=== PATIENT | female | born 1990 ===

== ENCOUNTER 2018-09-13 08:30 | Emergency (ER) | payer OTHER ==
--- NOTE | 2018-09-13 08:53 | OBHP ---
Datetime: 09/13/2018 08:47 IP Adm Impression: , intrauterine IP Chief Complaint Other: back pain Admit Comment, IP Provider: at 36+weks came with c/o back pin started last nigh, 12/13,no vb , l of+fm,no dysuria.did not had sex obhx 1 x pmh de med pnv all nkda psh de soch de ve close a/p t 36week back pain cont tyler and efm ua cont rosario zeb Pelvic Type - PN: Adequate Extremities - PN: Normal Abdomen - PN: Normal Back - PN: Normal Breast - PN: Normal Lungs - PN: Normal Heart - PN: Normal Thyroid - PN: Normal Neurologic - PN: Normal HEENT - PN: Normal General - PN: Normal FHR - Baseline A Provider: 130 Contraction Comments Provider: none EGA AdmitDate IP: 36.0 Vital Signs Provider: Reviewed; Within Normal Limits IP Chief Complaint: Maternal discomfort NICHD Variability Prov Fetus A: Moderate 6-25bpm FHR Category Provider Fetus A: Category I Dilatation, Provider: 0 Effacement, Provider: 0 Station, Provider: -3 Genitourinary Exam: Normal DTRs - PN: Normal
[2018-09-13 09:57] LABS: SQUAMOUS EPITHIAL 27 /hpf (0-5); URINE BACTERIA MANY (<OCC); URINE BILIRUBIN NEGATIVE (NEGATIVE); URINE BLOOD NEGATIVE (NEGATIVE); URINE CLARITY Hazy (Clear); URINE COLOR Amber (YELLOW); URINE GLUCOSE (UA) NORMAL (Normal); URINE LEUKOCYTE ESTERASE 3+ Leu/uL (Negative); URINE PROTEIN 1+ mg/dL (NEGATIVE); URINE UROBILINOGEN NORMAL mg/dL (0.2-1.0)
== END 2018-09-13 10:15 | disposition home or self-care (01) ==
LOC: C.EROB 08:30
DX: O26.893 Other specified pregnancy related conditions, third trimester (principal); Z3A.36 36 weeks gestation of pregnancy; M54.9 Dorsalgia, unspecified

== ENCOUNTER 2018-10-18 18:45 | Inpatient (IN) | payer OTHER ==
--- NOTE | 2018-10-18 19:25 | OBHP ---
Datetime: 10/18/2018 19:19 IP Adm Impression: Term, intrauterine IP Admit Plan: Admit to unit; Initiate labor induction protocol Admit Comment, IP Provider: A/P: 28 yo at 41 wks r/o labor - multigravida - GBS negative - Early labor and post dates, will induce FHR - Baseline A Provider: 140 Membranes, Provider: Intact Contraction Comments Provider: q6 Gestation - Est Wks by US: 41.0 Pool Provider: Negative EGA AdmitDate IP: 41.0 Vital Signs Provider: Reviewed; Within Normal Limits IP Chief Complaint: Uterine contractions NICHD Variability Prov Fetus A: Moderate 6-25bpm NICHD Accel Fetus A IP Provider: 15X15 FHR Category Provider Fetus A: Category I NICHD Decel Fetus A IP Provider: None Dilatation, Provider: 3 Effacement, Provider: 60 Station, Provider: -3
[2018-10-18] MEDS ORDERED: Lactated Ringer's 1,000 ML IV SCH (19:30)
--- NOTE | 2018-10-18 19:35 | OBADHP ---
Datetime: 10/18/2018 19:19 Admit Comment, IP Provider: A/P: 28 yo at 41 wks r/o labor - multigravida - GBS negative - Early labor and post dates, will induce with cervidil FHR - Baseline A Provider: 140 Membranes, Provider: Intact Contraction Comments Provider: q6 Gestation - Est Wks by US: 41.0 Pool Provider: Negative Vital Signs Provider: Reviewed; Within Normal Limits IP Chief Complaint: Uterine contractions NICHD Variability Prov Fetus A: Moderate 6-25bpm NICHD Accel Fetus A IP Provider: 15X15 FHR Category Provider Fetus A: Category I NICHD Decel Fetus A IP Provider: None Dilatation, Provider: 3 Effacement, Provider: 60 Station, Provider: -3 EGA AdmitDate IP: 41.0 IP Adm Impression: Term, intrauterine IP Admit Plan: Admit to unit; Initiate labor induction protocol Datetime: 09/13/2018 08:47 IP Chief Complaint Other: back pain Pelvic Type - PN: Adequate Extremities - PN: Normal Abdomen - PN: Normal Back - PN: Normal Breast - PN: Normal Lungs - PN: Normal Heart - PN: Normal Thyroid - PN: Normal Neurologic - PN: Normal HEENT - PN: Normal General - PN: Normal Genitourinary Exam: Normal DTRs - PN: Normal
--- NOTE | 2018-10-18 19:45 | OBPN ---
Datetime: 10/18/2018 19:40 IP Progress Impression Other: Early labor and post dates IP Informed Consent Obtain: Induction of Labor IP Progress Plan: Induction; Cervical Ripening FHR - Baseline A Provider: 140 IP Progress Note Comment: Cervidil placed 1938 NICHD Accel Fetus A IP Provider: 15X15 FHR Category Provider Fetus A: Category I NICHD Variability Prov Fetus A: Moderate 6-25bpm NICHD Decel Fetus A IP Provider: None Datetime: 10/18/2018 19:19 Pool Provider: Negative Membranes, Provider: Intact Contraction Comments Provider: q6 Gestation - Est Wks by US: 41.0 Vital Signs Provider: Reviewed; Within Normal Limits Dilatation, Provider: 3 Effacement, Provider: 60 Station, Provider: -3
[2018-10-18 19:54] LABS: BASO # 0.1 K/uL (0.0-0.2); EOS # 0.2 K/uL (0.0-0.7); EOS % 2.1 % (0.0-4.0); HEMOGLOBIN 12.2 g/dL (11.0-16.0); LYMPH # 2.3 K/uL (1.0-4.3); LYMPH % 27.3 % (20.0-40.0); MEAN CELL VOLUME 84.2 fL (81.0-99.0); MEAN CORPUSCULAR HEMOGLOBIN 28.9 pg (27.0-31.0); MEAN CORPUSCULAR HGB CONC 34.4 g/dL (33.0-37.0); MEAN PLATELET VOLUME 10.5 fL (7.2-11.7); MONO # 0.5 K/uL (0.0-0.8); MONO % 6.1 % (0.0-10.0); NEUT # 5.3 K/uL (1.8-7.0); NEUT % 63.5 % (50.0-75.0); RBC 4.23 Mil/uL (3.80-5.20); RED CELL DISTRIBUTION WIDTH 13.8 % (11.5-14.5); WHITE BLOOD COUNT 8.4 K/uL (4.8-10.8)
[2018-10-19] MEDS ORDERED: Lidocaine Hydrochloride 10 ML INJ ONE (06:14)
--- NOTE | 2018-10-19 06:26 | OBPN ---
Datetime: 10/19/2018 06:20 IP Progress Impression: Normal progression of labor; Rupture of membranes IP Progress Plan: Anticipate Vaginal Delivery Membranes, Provider: Ruptured Amniotic Fluid Color, Provider: Meconium, Light Contraction Comments Provider: q2 FHR - Baseline A Provider: 120 IP Progress Note Comment: Pt SROM, Cervidil removed Vital Signs Provider: Reviewed NICHD Accel Fetus A IP Provider: 15X15 FHR Category Provider Fetus A: Category I NICHD Variability Prov Fetus A: Moderate 6-25bpm Dilatation, Provider: 9 Effacement, Provider: 100 Station, Provider: 0 NICHD Decel Fetus A IP Provider: None
[2018-10-19] MEDS ORDERED: Oxycodone/Acetaminophen 5/325 mg Tab PO PRN (07:16)
[2018-10-19] MEDS ORDERED: Benzocaine/Menthol 20%-0.5% Topical Spray (60 ml) TOP PRN (07:16)
--- NOTE | 2018-10-19 07:25 | OBDS ---
DELIVERY PERSONNEL Delivery Doctor: Lacey Ruiz DO Mold Mechanic: Barbara Deasis RNC MATERNAL INFORMATION Delivery Anesthesia: Local Medications in Delivery: Pitocin 20 units Estimated Blood Loss (ml): 100 Placenta Cultured: No Maternal Complications: None LABOR SUMMARY EDC: 10/11/2018 00:00 No. Babies in Womb: 1 Attempted: No Labor Anesthesia: None LABOR INFORMATION Onset of Labor: 10/19/2018 01:00 Complete Dilatation: 10/19/2018 06:45 Cervical Ripening Agents: Cervidil Oxytocin: N/A Group B Beta Strep: Negative Antibiotics # of Doses: 0 Antibiotics Time of Last Dose: 0 Steroids Given: None Reason Steroids Not Administered: Not Applicable MEMBRANES Membranes Rupture Method: Spontaneous Rupture of Membranes: 10/19/2018 05:57 Length of Rupture (hrs): 0.88 Amniotic Fluid Color: Light Meconium Amniotic Fluid Amount: Moderate Amniotic Fluid Odor: Normal STAGES OF LABOR Stage 1 hrs: 5 Stage 1 min: 45 Stage 2 hrs: 0 Stage 2 min: 5 Stage 3 hrs: 0 Stage 3 min: 4 Total Time in Labor hrs: 5 Total Time in Labor min: 54 VAGINAL DELIVERY Laceration Extension: Second Degree Laceration Type: Vaginal Laceration Repair: Yes Laceration Repair Note: 2-0 chromic repaierd in a running fashion Initial Vag Sponge Count: 10 Final Vag Sponge Count: 10 Initial Vag Sharps Count: 0 Final Vag Sharps Count: 0 Sponge Count Correct: Yes; Vaginal Sweep Performed Sharps Count Correct: Yes BABY A INFORMATION Delivery Date/Time: 10/19/2018 06:50 Method of Delivery: Vaginal Born in Route : No : N/A Forceps: N/A Vacuum Extraction: N/A Shoulder Dystocia : No SHOULDER DYSTOCIA BABY A Infant Delivery Date/Time: 10/19/2018 06:50 PRESENTATION/POSITION BABY A Presentation: Cephalic Vertex Position: Left Occipital Anterior PLACENTA INFORMATION BABY A Placenta Delivery Time : 10/19/2018 06:54 Placenta Method of Delivery: Spontaneous SCORES BABY A Heart Rate 1 min: >100 bpm Resp Effort 1 min: Good Cry Reflex Irritability 1 min: Cough or Sneeze or Pulls Away Muscle Tone 1 min: Active Motion Color 1 min: Body [place], Extremities Blue SCORE 1 MIN: 9 Heart Rate 5 min: >100 bpm Resp Effort 5 min: Good Cry Reflex Irritability 5 min: Cough or Sneeze or Pulls Away Muscle Tone 5 min: Active Motion Color 5 min: Body [place], Extremities Blue SCORE 5 MIN: 9 INFANT INFORMATION BABY A Gestational Age at Delivery: 41.1 Gestational Status: Term Outcome : Liveborn Infant Condition : Stable Sex: Male IDENTIFICATION/MEDS BABY A ID Band Number: [id number] ID Band Location: Left Leg; Left Arm Sensor Applied: Yes Sensor Number: [id number] Sensor Location : Cord Clamp WEIGHT/LENGTH BABY A Infant Birthweight (gms): 3680 Weight (lb): 8 Infant Weight (oz): 2 Length Inches: 21.00 Infant Length cms: 53.3 CORD INFORMATION BABY A No. Cord Vessels: 3 Nuchal Cord : N/A Cord Blood Taken: Yes Suction: Mouth ASSESSMENT BABY A Complications: None Physical Findings at Delivery: Within Normal Limits Infant Respirations: Appears Normal [employer]/ALS Called : Yes Transferred To: Remains with Mother
[2018-10-19 09:44] VITALS: BMI 32.9
[2018-10-20 08:08] LABS: BASO # 0.1 K/uL (0.0-0.2); BASO % 0.5 % (0.0-2.0); EOS # 0.1 K/uL (0.0-0.7); EOS % 1.5 % (0.0-4.0); HEMOGLOBIN 10.7 g/dL (11.0-16.0); LYMPH # 1.8 K/uL (1.0-4.3); LYMPH % 17.4 % (20.0-40.0); MEAN CELL VOLUME 85.6 fL (81.0-99.0); MEAN CORPUSCULAR HEMOGLOBIN 29.4 pg (27.0-31.0); MEAN CORPUSCULAR HGB CONC 34.3 g/dL (33.0-37.0); MEAN PLATELET VOLUME 10.3 fL (7.2-11.7); MONO # 0.6 K/uL (0.0-0.8); NEUT # 7.5 K/uL (1.8-7.0); NEUT % 74.6 % (50.0-75.0); RBC 3.65 Mil/uL (3.80-5.20); RED CELL DISTRIBUTION WIDTH 13.8 % (11.5-14.5); WHITE BLOOD COUNT 10.1 K/uL (4.8-10.8)
[2018-10-20] MEDS ORDERED: Influenza Vaccine 60 mcg/0.5 mL SYR (4YR UP) IM ONE (18:28)
[2018-10-21 00:16] VITALS: O2SAT 99
[2018-10-21 07:24] LABS: BASO % 0.5 % (0.0-2.0); EOS # 0.5 K/uL (0.0-0.7); EOS % 5.6 % (0.0-4.0); HEMOGLOBIN 10.8 g/dL (11.0-16.0); LYMPH # 1.9 K/uL (1.0-4.3); LYMPH % 22.8 % (20.0-40.0); MEAN CORPUSCULAR HEMOGLOBIN 29.8 pg (27.0-31.0); MEAN CORPUSCULAR HGB CONC 34.7 g/dL (33.0-37.0); MEAN PLATELET VOLUME 9.9 fL (7.2-11.7); MONO # 0.4 K/uL (0.0-0.8); NEUT # 5.6 K/uL (1.8-7.0); NEUT % 66.1 % (50.0-75.0); RBC 3.63 Mil/uL (3.80-5.20); RED CELL DISTRIBUTION WIDTH 14.4 % (11.5-14.5); WHITE BLOOD COUNT 8.5 K/uL (4.8-10.8)
--- NOTE | 2018-10-21 08:30 | OBPPN ---
Datetime: 10/21/2018 07:28 PP Pain Prov: Within normal limits PP Nausea Prov: Denies PP Flatus Prov: Yes PP BM Prov: Yes PP Heart Prov: Normal PP Lungs Prov: Normal PP Abdomen/Uterus Prov: Normal PP Lochia Prov: Normal PP Progress Prov: Normal PP Comments Phys Exam Prov: Pulm: CTABL Cardio: RRR, no murmurs appreciated Abd: nondistended, nontender, fundal height 1 fingerbreadth below umbilicus. Extremities: no calf tenderness, nontender PP Impression Prov: Normal progression PP Plan Prov: Continue present management PP Progress Note Prov: Patient was seen and examined at bedside, in no acute distress. Patient repor ts resolved abdominal soreness and states she feels well without taking medications. Patient admits t o passing flatus and having a normal BM. Patient is exclusively without issue. Patient has been ambulating around the room without issue. Patient has no acute complaints, and denies chest pain, shortness of breath, fevers, chills. VSS PE: see above, AAOx3 in NAD, sitting comfortably in bed eating Labs: Hgb/Hct 10.8/31.2 Plan/Assessment: 28 Frisian speaking female s/p PPD#2 of liveborn male. Plan for discharge today. - Continue Motrin prn for pain - Continue Colace and Senokot to encourage bowel moevments - Continue Feosol - Continue vitamins - Encourage breast feeding and ambulation - Patient instructed to follow up in the clinic in 1 week for an appointment for baby boy. Patient instructed to follow up in the clinic in 6 weeks for an appointment for a personalized appointment. Patient expressed understanding. Patient encouraged to take all medications as prescribed and to purs ue pelvic rest for 6 weeks until the appointment. Patient seen, case reviewed and plan approved by Dr. Hayden. Ray Busby, PGY-1 Vital Signs Provider PP: Reviewed; Within Normal Limits Datetime: 10/20/2018 08:08 PP C/S Incision Prov: Not Applicable
--- NOTE | 2018-10-21 08:31 | OBDCSUM ---
Datetime: 10/21/2018 08:30 Discharged to, Provider: Home Discharge Diagnosis, Provider: Term Delivered Follow up in weeks, Provider: 6wee Disch Activity Restrictions: No exercising; No lifting; No driving; Minimize walking; Minimize stair -climbing; No sexual activity; Nothing in vagina - [place], tampons, douche Discharge Comment, Provider: no sex motrin prn f/u
[2018-10-21 08:55] VITALS: BP 105/66; PULSE 71; RESP 18
[2018-10-21 19:02] VITALS: TEMP 97
== END 2018-10-21 13:50 | disposition home or self-care (01) | DRG 373 ==
LOC: C.EROB 18:45 → C.4D 19:30 → C.4M 10-19 08:32
PROVIDERS: ADMIT Obstetrics & Gynecology; ATTEND Obstetrics & Gynecology
PROC: 10E0XZZ Delivery of Products of Conception, External Approach (ICD-10-PCS; principal; 2018-10-18)
PROC: 0KQM0ZZ Repair Perineum Muscle, Open Approach (ICD-10-PCS; 2018-10-18)
DX: O48.0 Post-term pregnancy (principal); O70.1 Second degree perineal laceration during delivery; Z3A.41 41 weeks gestation of pregnancy; Z37.0 Single live birth